=== PATIENT | female | born 2000 | race Caucasian/White ===

== ENCOUNTER 2018-06-04 14:08 | Emergency (ER) | payer MEDICAID ==
[~2018-06-04] VITALS: Ht 165.1 cm; Wt 79.8 kg
[2018-06-04 14:20] VITALS: Ht 165.1 cm; Wt 79.8 kg
[2018-06-04 15:10] LABS: BASOPHIL % 1.1 % (0-2); PLATELET COUNT 241 x10^3mcL (130-400); RED CELL DISTRIBUTION WIDTH 12.7 % (11.5-14.5)
[2018-06-04 17:20] VITALS: BP 110/64
== END 2018-06-04 17:05 | disposition home or self-care (01) ==
LOC: ED 14:08
PROVIDERS: Emergency Medicine
DX: O20.0 Threatened abortion (principal)
CPT/HCPCS: J7030

== ENCOUNTER 2018-09-02 16:10 | Emergency (ER) | payer MEDICAID ==
[~2018-09-02] VITALS: Ht 165.1 cm; Wt 85.7 kg
[2018-09-02 16:14] VITALS: Ht 165.1 cm; Wt 85.7 kg
[2018-09-02 18:27] VITALS: BP 121/72
== END 2018-09-02 18:27 | disposition home or self-care (01) ==
LOC: ED 16:10
DX: O36.8120 Decreased fetal movements, second trimester, not applicable or unspecified (principal); Z3A.22 22 weeks gestation of pregnancy